=== PATIENT | male | born 1990 | race Caucasian/White ===

== ENCOUNTER 2016-08-17 21:51 | Emergency (ER) | payer OTHER ==
[2016-08-17] MEDS ORDERED: NO MEDICATIONS (21:56)
== END 2016-08-17 23:01 | disposition home or self-care (01) ==
LOC: SED 21:51
DX: F11.129 Opioid abuse with intoxication, unspecified (principal); S01.111A Laceration without foreign body of right eyelid and periocular area, initial encounter; F17.210 Nicotine dependence, cigarettes, uncomplicated; X58.XXXA Exposure to other specified factors, initial encounter
CPT/HCPCS: 99284